=== PATIENT | female | born 1940 | race Caucasian/White ===

== ENCOUNTER → 2018-01-19 09:56 | Outpatient (CLI) | payer MEDICARE, SELFPAY ==
--- NOTE | 2018-01-19 13:10 | PFT ---
INTRODUCTION: The patient is a 78-year-old female currently under the care of myself the presents for pulmonary function testing secondary to a diagnosis of chronic cough. Respiratory therapy reports good patient effort reports no other concerns. Bronchodilators were used during testing. INTERPRETATION: Forced expiration spirometry demonstrates the presence of a mild large airways obstructive ventilatory defect. There was a significant response to aerosolized bronchodilators noted, based upon change in FEV1. Spirograms are of good quality and plateau gradually. Body plethysmography was performed and reveals a trend towards air trapping. Diffusing capacity by single breath CO is mildly reduced at 68% of predicted. IMPRESSION: These pulmonary function studies demonstrate the presence of a fully reversible mild large airways obstructive ventilatory defect with a trend towards hyperinflation and mild reduction in diffusing capacity. All of this would be concerning for potential underlying asthma, in the appropriate clinical setting.
== END ==
PROVIDERS: Family Provider Nurse Practitioner Primary Care; PCP Nurse Practitioner Primary Care; Visit Provider Internal Medicine Critical Care Medicine
DX: R05 Cough (principal)
CPT/HCPCS: 94060; 94726; 94729

== ENCOUNTER → 2018-01-27 14:59 | Outpatient (CLI) | payer MEDICARE, SELFPAY ==
[2018-01-27 16:46] LABS: Absolute Lymphocyte Count 3.88 X10^3/ul (0.83-4.51); Absolute Neutrophil Count 4.3 X10^3/uL (2.0-7.7); Basophil# 0.04 X10^3/uL; Basophil% 0.4 % (0-1); Eosinophil# 0.55 X10^3/uL; Eosinophils% 5.8 % (0-5); Hemoglobin 13.4 g/dl (12.0-15.0); Lymphocyte # 3.88 X10^3/ul (4.0); Lymphocyte % 41.1 % (19-41); Mean Corp Hgb Conc 32.7 g/gl (32-36); Mean Corpuscular Hgb 30.4 pg (27.0-32.0); Mean Platelet Vol. 10.7 fl (6.2-12.0); Monocyte# 0.67 X10^3/uL; Monocyte% 7.1 % (0-10); Neutrophil # 4.28 X10^3/uL (2.7-7.7); Neutrophil % 45.4 % (47-70); POSITIVE COUNT NO; POSITIVE DIFFERENTIAL NO; POSITIVE MORPHOLOGY NO; Platelet Count 303 K/mm3 (150-450); RBC Distribution Width CV 14.2 % (11.6-14.6); RBC Distribution Width SD 46.7 fl (35.1-43.9); Red Blood Count 4.41 M/mm3 (4.2-5.4); White Blood Count 9.4 K/mm3 (4.4-11.0)
[2018-02-04 09:38] LABS: Aspirgillus flavus Negative (Neg:<1:1); Aspirgillus fumigatus Negative (Neg:<1:1); Aspirgillus niger Negative (Neg:<1:1)
[2018-02-05 09:14] LABS: Immunoglobulin E 93 IU/mL (0-100)
== END ==
PROVIDERS: Family Provider Nurse Practitioner Primary Care; PCP Nurse Practitioner Primary Care; Visit Provider Nurse Practitioner Acute Care
DX: R05 Cough (principal); K21.9 Gastro-esophageal reflux disease without esophagitis
CPT/HCPCS: 36415; 82785; 85025; 86606

== ENCOUNTER → 2018-07-12 12:00 | Outpatient (CLI) | payer MEDICARE, SELFPAY ==
--- NOTE | 2018-07-12 12:18 | CT_ITS ---
STUDY: CT MAXILLOFACIAL SINUSES REASON FOR EXAM: Female, 78 years old. Chronic sinusitis RADIATION DOSAGE (If Supplied By Facility): CTDIvol = ( 33.06 ) mGy, DLP = ( 767.73 ) mGycm TECHNIQUE: The patient was scanned in a multi detector CT scanner. High resolution axial imaging was performed without the administration of intravenous contrast material. Sagittal and coronal images were reconstructed. Individualized dose optimization techniques were used for this CT. COMPARISON: None. FINDINGS: FRONTAL SINUSES: Normal aeration, with mucosal inflammatory disease. ETHMOIDAL SINUSES: Normal aeration, with significant mucosal inflammatory disease. MAXILLARY SINUSES: Near complete opacification of both maxillary sinuses. SPHENOIDAL SINUSES: Normal aeration, without mucosal inflammatory disease. There is occlusion of the bilateral maxillary infundibuli with normal uncinate processes, ethmoid bullae, and hiatus semilunaris. The visualized osseous structures are normal. The visualized bilateral orbital contents are normal. CT/Sinus/Facial Bone IMPRESSION: Significant paranasal sinusitis with near complete occlusion of both maxillary sinuses. Near complete occlusion of both ethmoid sinuses with occlusion of both ostiomeatal complexes Electronically Signed: Miles Nesbitt MD at 13:34 EDT , Service support ,
== END ==
PROVIDERS: Family Provider Nurse Practitioner Primary Care; PCP Nurse Practitioner Primary Care; Visit Provider Otolaryngology
DX: J32.9 Chronic sinusitis, unspecified (principal); J32.0 Chronic maxillary sinusitis
CPT/HCPCS: 70486; 87070; 87077; 87186; 87205

== ENCOUNTER 2018-11-26 07:41 | Day surgery (SDC) | payer MEDICARE, SELFPAY ==
[2018-08-23 13:15] VITALS: BMI 35.3
--- NOTE | 2018-11-26 | ETH_PTH ---
PATIENT: PRATIMA ALEXANDER [place] [facility] [place][id number] AGE/SX: 78/F ROOM: RE11/26/[address]: Dr. Tirso Borja MD : [id number] BED: DIS: 11/26/2018 SPEC #: [id number] RECD: 11/26/18 12:46 STATUS: ADRIANO JULIANE #: [id number] RAULITO: 11/26/18 00:[address]: Tisro Borja DEPT: SURGICAL PATHOLOGY RECD BY: Kris Gold ENTERED: 11/26/18 12:46 SP TYPE: ETH TISS OTHR DR: Tamar Guzman, MANAGER SECONDARY-Supriya Tissues: Ethmoid sinus, NOS Procedures: Surgery Specimen Level III HEADER OPERATION: Endoscopy sinus/nasal maxillary antrostomy, endoscopy nasal PRE-OP DIAGNOSIS: Chronic maxillary sinusitis, ethmoidal sinusitis, deviated nasal septum TISSUE SUBMITTED: Bilateral maxillary and ethmoid sinus contents MICROSCOPIC DIAGNOSIS Bilateral maxillary and ethmoid sinus contents, excision: Consistent with chronic sinusitis. Inflammatory and epithelial cells with degenerative change. Fragments of bone with no pathologic change. AM:rashel 11/29/18 MICROSCOPIC DESCRIPTION Slides are reviewed. GROSS DESCRIPTION Received in fixative is one container labeled with the patient's name and designated bilateral maxillary and ethmoid sinus contents. The specimen consists of multiple foamy fragments of almendarez-red soft tissue that in aggregate measure 7 x 3 x 0.5 cm. Railroad Inspector portions are submitted in two cassettes. / AM:rashel 11/26/18 TC:3 CPT: 63548
--- NOTE | 2018-11-26 07:55 | EKG12_ITS ---
Test Reason : PRE-OP Blood Pressure : / mmHG Vent. Rate : 065 BPM Atrial Rate : 065 BPM P-R Int : 262 ms QRS Dur : 078 ms QT Int : 400 ms P-R-T Axes : 032 032 023 degrees QTc Int : 416 ms Sinus rhythm with 1st degree A-V block Septal infarct , age undetermined Abnormal ECG When compared with ECG of 20-OCT-1996 10:12, UT interval has increased Confirmed by DESEAN ROBB, SUSIE ([id number]), industrial editor FAVIAN CABRAL ([id number]) on 11/30/2018 9:07:26 AM Referred By: Tirso Borja Confirmed By:SUSIE ANTON MD
[2018-11-26 08:10] VITALS: BP 176/77; PULSE 67; RESP 16; TEMP 36.8; O2SAT 98; BMI 34.6
[2018-11-26 08:25] LABS: Anion Gap 10 (5-15); BUN 11 mg/dL (7-18); BUN/Creat Ratio 13.8 RATIO (10-20); Calcium,Total 8.9 mg/dL (8.5-10.1); Chloride 106 mmol/L (98-107); EST Glomerular Filtration Rate 74 mL/min (>60); Est Glom Filt Rate - Afr Amer 90 mL/min (>60); Estimated Creatinine Clearance 45.14 ml/min; Glucose 96 mg/dL (74-106); Sodium Level 142 mmol/L (136-145)
[2018-11-26] MEDS: Lidocaine 4% 50 ML Bottle (09:57)
[2018-11-26] MEDS: Oxymetazoline 0.05% 1 SPRAY SPRAY.BTL 15 SPRAY (09:57)
--- NOTE | 2018-11-26 10:49 | OP.PCM_ITS ---
Problem List (1) Chronic maxillary sinusitis Status: Chronic (2) Chronic ethmoidal sinusitis Status: Chronic (3) Chronic cough Status: Chronic Report of Operation Date of Procedure: 11/26/18 Pre-Operative Diagnosis: Chronic maxillary and ethmoid sinusitis Post-Operative Diagnosis: Same Surgery/Procedure Performed:: Bilateral maxillary antrostomies, partial ethmoidectomies Description of Surgical Findings:: Zaira is a 78-year-old female who presents with complaints of chronic cough. Examination is shown persistent purulent sinus discharge and despite extensive medical and antibiotic therapy this failed to resolve. CT scan showed extensive bilateral chronic appearing maxillary and ethmoid sinusitis and the surgery was offered in hopes of relief and she was agreeable to proceed. The risks, alternatives, potential benefits, and complications were discussed at length and any questions answered to the patient and/or caregiver's satisfaction. Witnessed informed consent was obtained in the office, and the patient and/or caregiver was agreeable to proceed. Procedure went as follows: The patient was identified in the preoperative holding and brought to the operating room, was placed under general anesthesia and intubated. When appropriate anesthesia was obtained, the navigational head gear was placed and confirmed to be operational in accordance with the food and beverage assistant's directions. Pledgets soaked in a 50-50 mixture of oxymetazoline and 4% topical lidocaine were placed to decongest the nasal mucosa. These were then removed and beginning on the left side using a 0? endoscope the nasal cavity examined. The insertion of the middle turbinate and uncinate process was then injected with 1% lidocaine with 100,000 epinephrine for a 2 mL total, and a similar injection was then carried on the contralateral side. Upon returning to the left side the middle turbinate was medialized with a Adair elevator. This allowed examination of the maxillary sinus ostia which is then probed with a double ball seeker. The uncinate process was then outfractured with a J curette and transected with a backbiting forceps. This was then removed with the microdebrider creating a wide maxillary antrostomy. This was noted to be filled with purulent material which is irrigated with saline until clear. The ethmoid bulla was then entered and an anterior ethmoidectomy was then carried out working posteriorly to anterior. Any polyps, scar, and mucous secretions were removed. Pledgets soaked in oxymetazoline were then placed for hemostasis and attention turned to the contralateral side. Similar procedure and findings were then carried out, again with abundant trapped purulent material noted. Floseal hemostatic agent was then applied. An NG tube was then placed to decompress the stomach and the patient returned to anesthesia, revived and extubated having tolerated the procedure well. Type of Anesthesia:: General Anesthesiologist: Tirso Zapata Special Medications: none Specimen's removed: sinus contents Drains: none Estimated Blood Loss (mL): 50 mL Fluids Replaced: 1000 mL Grafts/Implants Used: none - Complications none - Admit VTE Documentation VTE Present on Admission: No VTE Mechan Device Prophylaxis: SCD's VTE Pharm Prophylaxis ordered?: No
--- NOTE | 2018-11-26 10:51 | PCM.DC ---
- Discharge Diagnoses Current Active Problems: Current Active and Chronic Problems (Last Reviewed 08/23/18 @ 13:17 by Tamar Wong) Chronic maxillary sinusitis (Chronic) Chronic ethmoidal sinusitis (Chronic) You will use the following diet at home:: No restrictions Your food should be the consistency of: Regular Discharge Activity: Return to Normal Activity, May not drive while taking narcotic pain medications. Call your doctor if your incision/area has: Sudden Increased Bleeding Call your doctor if you observe: Fever of 101 or Higher, Uncontrolled pain Allergies/Adverse Reactions: Allergies codeine Allergy (Unknown, Verified 08/23/18 13:17) Unknown egg Allergy (Unknown, Verified 08/23/18 13:17) Unknown morphine Allergy (Verified 11/24/18 15:30) Other Medications to take at Discharge antiarthritic combination no.2 900 mg tablet 900 mg PO BID ea 12/11/17 aspirin 81 mg tablet,delayed release 81 mg PO QDAY tab 12/11/17 calcium carbonate 500 mg calcium (1,250 mg) chewable tablet 500 mg PO BID tab 12/11/17 metoprolol succinate ER 100 mg tablet,extended release 24 hr 100 mg PO QDAY tab 12/11/17 ltvtmkcrmcbp-Jm-roti-minerals tablet 1 tab PO QDAY ea 12/11/17 omeprazole magnesium 20 mg tablet,delayed release 20 mg PO BID 12/11/17 ranitidine 150 mg tablet 150 mg PO QHS 12/11/17 saliva substitute combo no.9 mouthwash 3 ml MUCOUS MEMBRANE .COMPLEX ml 12/11/17 simvastatin 20 mg tablet 20 mg PO QAM 12/11/17 triamcinolone acetonide 0.025 % topical cream 1 applic TOPICAL .qid PRN g 12/11/17 albuterol sulfate HFA 90 mcg/actuation aerosol inhaler 2 puff INHALATION Q4H PRN #18 g 05/17/18 azelastine 137 mcg (0.1 %) nasal spray aerosol 1 spray INTRANASAL Q12H 05/17/18 beclomethasone diprop 80 mcg/actuation HFA breath activated aerosol 2 puff INHALATION Q12H #10.6 g 05/17/18 Losartan Potassium 100 mg pe PO DAILY 11/24/18 Primary Care Physician: Tamar Guzman, MEDIA SERVICES DIRECTOR-C [Primary Care Provider] - Test Results: Test results from this visit will be discussed in further detail at your follow-up appointment, if applicable. Please Follow Up With: Tirso Borja MD When: 2 weeks
[2018-11-26 10:55] VITALS: BP 108/98; BP 176/77; PULSE 72; RESP 16; TEMP 36.3; O2SAT 93
[2018-11-26 11:14] VITALS: BP 151/66; BP 176/77; PULSE 75; RESP 16; O2SAT 99
[2018-11-26 11:30] VITALS: BP 148/65; BP 176/77; PULSE 68; RESP 16; O2SAT 94
[2018-11-26 11:38] VITALS: BP 142/75; BP 176/77; PULSE 70; RESP 16; TEMP 36.4; O2SAT 93
[2018-11-26] MEDS: Ondansetron 4 MG/2 ML Vial IV (12:32)
[2018-11-26] MEDS: Acetaminophen 325 MG Tablet 650 MG PO (12:32)
[2018-11-26 15:14] VITALS: BP 165/76; BP 176/77; PULSE 79; RESP 16; TEMP 36.4; O2SAT 96
== END 2018-11-26 15:21 | disposition home or self-care (01) ==
LOC: SDC 07:43 → AC 07:44
PROVIDERS: Family Provider Nurse Practitioner Primary Care; PCP Nurse Practitioner Primary Care; Referring Provider Otolaryngology; Visit Provider Otolaryngology
PROC: (CPT 31254; principal; 2018-11-26 08:50)
DX: J32.0 Chronic maxillary sinusitis (principal); J32.2 Chronic ethmoidal sinusitis; R05 Cough; J34.2 Deviated nasal septum; E78.5 Hyperlipidemia, unspecified; I10 Essential (primary) hypertension; K21.9 Gastro-esophageal reflux disease without esophagitis
CPT/HCPCS: 31254; 31256; 80048; 88304; 88305; 93005; J7120; J2405

== ENCOUNTER → 2019-09-16 14:27 | Outpatient (CLI) | payer MEDICARE, SELFPAY ==
[2019-09-16 13:42] VITALS: BMI 35.1
[2019-09-16 14:50] LABS: Absolute Lymphocyte Count 4.39 X10^3/uL (0.83-4.51); Absolute Neutrophil Count 6.1 X10^3/uL (2.0-7.7); Basophil# 0.07 X10^3/uL; Basophil% 0.6 % (0-1); Eosinophils% 5.8 % (0-5); Hematocrit 42.4 % (37-47); Hemoglobin 13.8 g/dL (12.0-15.0); Lymphocyte # 4.39 X10^3/ul (4.0); Lymphocyte % 36.3 % (19-41); Mean Corp Hgb Conc 32.5 g/dL (32-36); Mean Corpuscular Hgb 30.7 pg (27.0-32.0); Mean Corpuscular Volume 94.2 fL (81-99); Mean Platelet Vol. 9.7 fl (6.2-12.0); Monocyte# 0.77 X10^3/uL; Monocyte% 6.4 % (0-10); NRBC Flagged by Analyzer 0 % (0-5); Neutrophil # 6.11 X10^3/uL (2.7-7.7); Neutrophil % 50.5 % (47-70); Platelet Count 322 K/mm3 (150-450); RBC Distribution Width CV 12.9 % (11.6-14.6); RBC Distribution Width SD 44.5 fl (35.1-43.9); White Blood Count 12.1 K/mm3 (4.4-11.0)
[2019-09-21 06:07] LABS: Alternaria alternata <0.10 kU/L (Class 0); Bermuda Grass <0.10 kU/L (Class 0); Bluegrass, Kentucky <0.10 kU/L (Class 0); Cat Hair/Dander, Standard <0.10 kU/L (Class 0); D farinae Mite 0.15 kU/L (Class 0/I); D pteronyssinus 0.19 kU/L (Class 0/I); Dog Epithelia <0.10 kU/L (Class 0); Elm, American White 0.37 kU/L (Class I); Oak, White <0.10 kU/L (Class 0); Plantain, English <0.10 kU/L (Class 0); Ragweed, Short/Common <0.10 kU/L (Class 0)
[2019-09-21 10:32] LABS: Mouse Urine <0.10 kU/L (Class 0)
== END ==
PROVIDERS: Family Provider Nurse Practitioner Primary Care; PCP Nurse Practitioner Primary Care; Referring Provider Nurse Practitioner Acute Care; Visit Provider Nurse Practitioner Acute Care
DX: J45.909 Unspecified asthma, uncomplicated (principal)
CPT/HCPCS: 36415; 85025; 86003

== ENCOUNTER → 2019-12-19 14:22 | Outpatient (CLI) | payer MEDICARE, SELFPAY ==
[2019-12-19 08:11] VITALS: BMI 40.2
[2019-12-19 15:01] LABS: Absolute Neutrophil Count 3.7 X10^3/uL (2.0-7.7); Basophil# 0.05 X10^3/uL; Basophil% 0.6 % (0-1); Eosinophil# 0.39 X10^3/uL; Eosinophils% 4.5 % (0-5); Hematocrit 40.4 % (37-47); Hemoglobin 13.1 g/dL (12.0-15.0); Lymphocyte % 44.7 % (19-41); Mean Corp Hgb Conc 32.4 g/dL (32-36); Mean Corpuscular Hgb 30.8 pg (27.0-32.0); Mean Corpuscular Volume 94.8 fL (81-99); Monocyte# 0.65 X10^3/uL; Monocyte% 7.4 % (0-10); NRBC Flagged by Analyzer 0 % (0-5); Neutrophil # 3.71 X10^3/uL (2.7-7.7); Neutrophil % 42.5 % (47-70); Platelet Count 279 K/mm3 (150-450); RBC Distribution Width CV 13.5 % (11.6-14.6); RBC Distribution Width SD 47.2 fl (35.1-43.9); Red Blood Count 4.26 M/mm3 (4.2-5.4); White Blood Count 8.7 K/mm3 (4.4-11.0)
[2019-12-21 16:08] LABS: Cytoplasmic Ab (C-ANCA) <1:20 titer (Neg:<1:20)
[2019-12-21 20:03] LABS: Perinuclear Ab (P-ANCA) <1:20 titer (Neg:<1:20)
== END ==
PROVIDERS: PCP Nurse Practitioner Primary Care; Referring Provider Nurse Practitioner Acute Care; Visit Provider Nurse Practitioner Acute Care
DX: J32.0 Chronic maxillary sinusitis (principal); J45.909 Unspecified asthma, uncomplicated
CPT/HCPCS: 36415; 85025; 86256

== ENCOUNTER → 2020-03-07 10:11 | Outpatient (CLI) | payer MEDICARE, SELFPAY ==
[2020-01-31 08:08] VITALS: BMI 40.2
[2020-03-07 10:21] VITALS: BP 149/65; PULSE 76; RESP 18; TEMP 35.4; O2SAT 96; BMI 39.6
[2020-03-07] MEDS: Benralizumab 30 MG/ML Syringe SQ (10:31)
[2020-03-07 11:36] VITALS: BP 153/68; PULSE 72; RESP 16; TEMP 35.8; O2SAT 99
[2020-03-07 11:37] VITALS: BP 153/68; PULSE 72; RESP 16; TEMP 36; O2SAT 99
== END ==
PROVIDERS: PCP Nurse Practitioner Primary Care; Referring Provider Nurse Practitioner Acute Care; Visit Provider Nurse Practitioner Acute Care
DX: J45.50 Severe persistent asthma, uncomplicated (principal)
CPT/HCPCS: 96372; J0517

== ENCOUNTER → 2020-04-04 09:56 | Outpatient (CLI) | payer MEDICARE, SELFPAY ==
[2020-01-31 08:08] VITALS: BMI 40.2
[2020-03-20 08:45] VITALS: BMI 39.6
[2020-04-04 10:00] VITALS: BP 163/68; PULSE 75; RESP 18; TEMP 36.9; O2SAT 100; BMI 37.8
[2020-04-04] MEDS: Benralizumab 30 MG/ML Syringe SQ (10:09)
[2020-04-04 10:45] VITALS: BP 162/66; PULSE 68; RESP 16
== END ==
PROVIDERS: PCP Nurse Practitioner Primary Care; Referring Provider Nurse Practitioner Acute Care; Visit Provider Nurse Practitioner Acute Care
DX: J45.50 Severe persistent asthma, uncomplicated (principal)
CPT/HCPCS: 96372; J0517

== ENCOUNTER → 2020-05-02 13:57 | Outpatient (CLI) | payer MEDICARE, SELFPAY ==
[2020-03-20 08:45] VITALS: BMI 39.6
[2020-04-04 10:00] VITALS: BMI 37.8
[2020-05-02 14:22] VITALS: BP 179/86; PULSE 86; RESP 16; TEMP 36.2; O2SAT 97; BMI 37.8
[2020-05-02] MEDS: Benralizumab 30 MG/ML Syringe SQ (14:26)
== END ==
PROVIDERS: PCP Nurse Practitioner Primary Care; Referring Provider Nurse Practitioner Acute Care; Visit Provider Nurse Practitioner Acute Care
DX: J45.50 Severe persistent asthma, uncomplicated (principal)
CPT/HCPCS: 96372; J0517

== ENCOUNTER → 2020-06-27 09:53 | Outpatient (CLI) | payer MEDICARE, SELFPAY ==
[2020-04-04 10:00] VITALS: BMI 37.8
[2020-06-25 13:33] VITALS: BMI 37.8
[2020-06-27 09:50] VITALS: BP 138/73; PULSE 83; RESP 16; TEMP 36.6; O2SAT 99; BMI 37.8
[2020-06-27] MEDS: Benralizumab 30 MG/ML Syringe SQ (10:02)
[2020-06-27 10:35] VITALS: BP 134/67; PULSE 78
== END ==
PROVIDERS: PCP Nurse Practitioner Primary Care; Referring Provider Nurse Practitioner Primary Care; Visit Provider Nurse Practitioner Acute Care
DX: J45.50 Severe persistent asthma, uncomplicated (principal)
CPT/HCPCS: 96372; J0517

== ENCOUNTER → 2020-08-22 09:55 | Outpatient (CLI) | payer MEDICARE, SELFPAY ==
[2020-06-25 13:33] VITALS: BMI 37.8
[2020-06-27 09:50] VITALS: BMI 37.8
[2020-08-22 10:11] VITALS: BP 109/87; PULSE 84; RESP 16; TEMP 35.8; O2SAT 97; BMI 37.8
[2020-08-22] MEDS: Benralizumab 30 MG/ML Syringe SQ (10:15)
== END ==
PROVIDERS: PCP Nurse Practitioner Primary Care; Referring Provider Nurse Practitioner Acute Care; Visit Provider Nurse Practitioner Acute Care
DX: J45.50 Severe persistent asthma, uncomplicated (principal)
CPT/HCPCS: 96372; J0517

== ENCOUNTER → 2020-10-17 09:56 | Outpatient (CLI) | payer MEDICARE, SELFPAY ==
[2020-06-27 09:50] VITALS: BMI 37.8
[2020-08-22 10:11] VITALS: BMI 37.8
[2020-10-17 10:26] VITALS: BP 146/66; PULSE 67; RESP 14; TEMP 36.3; O2SAT 98; BMI 37.8
[2020-10-17] MEDS: Benralizumab 30 MG/ML Syringe SQ (10:28)
== END ==
PROVIDERS: PCP Nurse Practitioner Primary Care; Referring Provider Nurse Practitioner Acute Care; Visit Provider Nurse Practitioner Acute Care
DX: J45.50 Severe persistent asthma, uncomplicated (principal)
CPT/HCPCS: 96372; J0517

== ENCOUNTER 2020-12-19 09:54 | Outpatient (CLI) | payer MEDICARE, SELFPAY ==
[2020-08-22 10:11] VITALS: BMI 37.8
[2020-10-17 10:26] VITALS: BMI 37.8
[2020-12-19 10:02] VITALS: BP 166/82; PULSE 83; RESP 16; TEMP 35.5; O2SAT 95; BMI 37.8
[2020-12-19] MEDS: Benralizumab 30 MG/ML Syringe SQ (10:07)
[2020-12-19 10:46] VITALS: BP 158/79; PULSE 72
== END 2020-12-19 16:52 | disposition home or self-care (01) ==
LOC: MEDOUTP 09:54
PROVIDERS: PCP Nurse Practitioner Primary Care; Referring Provider Nurse Practitioner Acute Care; Visit Provider Nurse Practitioner Acute Care
DX: J45.50 Severe persistent asthma, uncomplicated (principal)
CPT/HCPCS: 96372; J0517

== ENCOUNTER 2021-02-13 09:53 | Outpatient (CLI) | payer MEDICARE, SELFPAY ==
[2020-10-17 10:26] VITALS: BMI 37.8
[2020-12-24 13:49] VITALS: BMI 37.5
[2021-02-13 10:08] VITALS: BP 168/97; PULSE 75; RESP 16; TEMP 35.8; O2SAT 96; BMI 37.8
[2021-02-13] MEDS: Benralizumab 30 MG/ML Syringe SC (10:31)
[2021-02-13 11:00] VITALS: BP 160/71; PULSE 71; RESP 16; TEMP 36; O2SAT 97
== END 2021-02-13 15:00 | disposition home or self-care (01) ==
LOC: MEDOUTP 09:56
PROVIDERS: PCP Nurse Practitioner Primary Care; Referring Provider Nurse Practitioner Acute Care; Visit Provider Nurse Practitioner Acute Care
DX: J45.50 Severe persistent asthma, uncomplicated (principal)
CPT/HCPCS: 96372; J0517

== ENCOUNTER → 2021-04-10 09:54 | Outpatient (CLI) | payer MEDICARE, SELFPAY ==
[2020-12-24 13:49] VITALS: BMI 37.5
[2021-04-10 10:03] VITALS: BP 185/69; PULSE 75; RESP 16; TEMP 35.9; O2SAT 97; BMI 37.8
[2021-04-10] MEDS: Benralizumab 30 MG/ML Syringe SC (10:09)
[2021-04-10 10:45] VITALS: BP 152/67; PULSE 78
== END ==
PROVIDERS: PCP Nurse Practitioner Primary Care; Referring Provider Nurse Practitioner Acute Care; Visit Provider Nurse Practitioner Acute Care
DX: J45.50 Severe persistent asthma, uncomplicated (principal)
CPT/HCPCS: 96372; J0517

== ENCOUNTER → 2021-06-05 09:53 | Outpatient (CLI) | payer MEDICARE, SELFPAY ==
[2021-04-10 10:03] VITALS: BMI 37.8
[2021-06-05 10:00] VITALS: BP 180/79; PULSE 72; RESP 16; TEMP 36.2; O2SAT 100
[2021-06-05] MEDS: Benralizumab 30 MG/ML Syringe SC (10:03)
[2021-06-05 10:32] VITALS: BP 181/64; PULSE 69; RESP 16; O2SAT 98
== END ==
PROVIDERS: PCP Nurse Practitioner Primary Care; Referring Provider Nurse Practitioner Acute Care; Visit Provider Nurse Practitioner Acute Care
DX: J45.50 Severe persistent asthma, uncomplicated (principal)
CPT/HCPCS: 96372; J0517

== ENCOUNTER → 2021-07-31 10:49 | Outpatient (CLI) | payer MEDICARE, SELFPAY ==
[2021-04-10 10:03] VITALS: BMI 37.8
[2021-07-31 11:23] VITALS: BP 130/86; PULSE 74; RESP 18; TEMP 36.2; O2SAT 96; BMI 37.8
[2021-07-31] MEDS: Benralizumab 30 MG/ML Syringe SC (11:37)
== END ==
PROVIDERS: PCP Nurse Practitioner Primary Care; Referring Provider Nurse Practitioner Acute Care; Visit Provider Nurse Practitioner Acute Care
DX: J45.50 Severe persistent asthma, uncomplicated (principal)
CPT/HCPCS: 96372; J0517